=== PATIENT | male | born 1955 | race Caucasian/White ===

== ENCOUNTER → 2022-08-21 | Outpatient (CLI) | payer MEDICARE, SELFPAY ==
--- NOTE | 2022-08-21 07:04 | CT_ITS ---
EXAM: CT CHEST, LUNG CANCER SCREENING WITHOUT INTRAVENOUS CONTRAST CLINICAL INDICATION: Z87.891 TECHNIQUE: Helically acquired images were obtained of the chest without intravenous contrast using low dose (LDCT) lung cancer screening protocol. This CT exam was performed using one or more of the following dose reduction techniques: automated exposure control, adjustment of the mA and/or kV according to patient size, and/or use of iterative reconstruction technique. This report was created using [employer] report generation technology. COMPARISON: None. FINDINGS: LUNGS AND PLEURAL SPACES: Prominent diffuse centrilobular pulmonary emphysema. Postinflammatory changes noted along both lung apices as well as at the left lung base. No evidence of lung mass or suspicious pulmonary nodule. No pleural effusion or thickening. No pneumothorax. HEART: Postoperative changes of CABG. Heart size is normal. No pericardial effusion. No significant coronary artery calcifications. MEDIASTINUM: Normal. No mediastinal or hilar adenopathy. Esophagus is unremarkable. No hiatal hernia. THYROID: Normal. No thyroid lesions. BONES/JOINTS: Normal. No suspicious lytic or blastic abnormality. VASCULATURE: Normal. Thoracic aorta is non-dilated. LYMPH NODES: Normal. No enlarged lymph nodes. TUBES, LINES AND DEVICES: Atrial and ventricular pacemaker wires are in place. CT/Low Dose CT Lung Screening IMPRESSION: 1. Pulmonary emphysema. 2. No evidence of lung mass or suspicious pulmonary nodule. 3. ACR Lung CT Screening Reporting T Data System (Lung-RADS) score: 1S - Additional clinically significant or potentially clinically significant findings are described. Recommend continued annual screening with low-dose CT (LDCT) in 12 months. Electronically Signed: Travis Kenney MD at 7:36 EDT ,
== END | disposition home or self-care (01) ==
PROVIDERS: Referring Provider Internal Medicine Pulmonary Disease; Visit Provider Internal Medicine Pulmonary Disease
DX: Z12.2 Encounter for screening for malignant neoplasm of respiratory organs (principal); Z87.891 Personal history of nicotine dependence
CPT/HCPCS: 71271